=== PATIENT | male | born 1955 | race Two or more races ===

== ENCOUNTER 2020-10-12 09:19 | Inpatient (IN) | payer MEDICARE, MEDICAID ==
[2020-10-12] VITALS (14 sets, daily range): BP systolic 141–163; BP diastolic 88–102
[~2020-10-12] VITALS: Ht 182.9 cm; Wt 90.7 kg
[~2020-10-12 09:19] MED LIST: ceFAZolin sod 1 GM in NS 55 ML IVPB ONE
[2020-10-12] MEDS ORDERED: AMLODIPINE BESYL5 MG ORAL (11:27)
[2020-10-12] MEDS ORDERED: BENAZEPRIL HCL40 MG ORAL (11:27)
[2020-10-12] MEDS ORDERED: FLOMAX0.4 MG ORAL (11:27)
[2020-10-12] MEDS ORDERED: FINASTERIDE5 MG ORAL (11:27)
--- NOTE | 2020-10-12 12:12 | Anethesia Preoperative Eval ---
Anesthesia Pre-op PMH/ROS General Date of Evaluation: Oct 12, 2020 Time of Evaluation: 12:43 Anesthesiologist: Gwen ASA Score: ASA 3 Mallampati Score Class I : Soft palate, uvula, fauces, pillars visible Class II: Soft palate, uvula, fauces visible Class III: Soft palate, base of uvula visible Class IV: Only hard plate visible Mallampati Classification: Class II Surgeon: Hamlet Diagnosis: BPH Surgical Procedure: TURP Anesthesia History: none Family History: no anesthesia problems Allergies: Coded Allergies: No Known Allergies (Unverified , 12/22/14) Medications: see eMAR Patient NPO?: Yes Past Medical History Cardiovascular: Reports: HTN Gastrointestinal/Genitourinary: Reports: other - BPH Musculoskeletal/Integumentary: Reports: OA PSxH Narrative: L IHR, R Knee SX Anesthesia Pre-op Phys. Exam Physician Exam Last Vital Signs Date Time Temp Pulse Resp B/P (MAP) Pulse Ox O2 Delivery O2 Flow Rate FiO2 10/12/20 11:34 97.1 89 20 146/102 97 Room Air Constitutional: NAD Neurologic: CN 2-12 intact Cardiovascular: RRR Respiratory: CTA Gastrointestinal: S/NT/ND Airway Exam Mallampati Score: Class II MO: full ROM: limited Teeth: missing, intact Anesthesia Pre-op A/P Risk Assessment & Plan Assessment: ASA 3 Plan: GA, SED,. GlideScope Status Change Before Surgery: No Pre-Antibiotics Dru Gram Ancef IV Given Within 1 Hr of Incision: Yes Time Given: 13:06 Collin Hidalgo MD Oct 12, 2020 12:12
[2020-10-12] MEDS ORDERED: Metoclopramide 10mg/2ml Inj IVP PRN (12:15)
[2020-10-12] MEDS ORDERED: Ketorolac 30mg Inj IV PRN ×2 (12:15)
[2020-10-12] MEDS ORDERED: LR 1000ml 1,000 ML IVLG SCH (12:15)
[2020-10-12] MEDS ORDERED: Midazolam 2mg/2ml Inj IVP PRN (12:15)
[2020-10-12] MEDS ORDERED: LORazepam Inj 2mg/ml 1ml IV PRN (12:15)
[2020-10-12] MEDS ORDERED: HYDROcodone/Acetamin 7.5/325 tab ORAL PRN (12:15)
[2020-10-12] MEDS ORDERED: Acetaminophen (Non formulary) 100 ML IV ONE (12:15)
[2020-10-12] MEDS ORDERED: fentaNYL 100 mcg/2 mL IV PRN (12:15)
[2020-10-12] MEDS ORDERED: Atropine Sulfate 0.4mg/ml inj IVP PRN (12:15)
[2020-10-12] MEDS ORDERED: Meperidine 25mg/1ml Inj (FOR RIGORS ONLY) IV PRN (12:15)
[2020-10-12] MEDS ORDERED: Hydromorphone 0.5mg/0.5ml inj IVP PRN (12:15)
[2020-10-12] MEDS ORDERED: HYDROcodone/Acetamin 5/325 tab ORAL PRN (12:15)
[2020-10-12] MEDS ORDERED: Labetalol 5mg/ml 20ml vial IV PRN (12:15)
[2020-10-12] MEDS ORDERED: DiphenhydrAMINE 50mg/ml Inj IVP PRN (12:15)
[2020-10-12] MEDS ORDERED: oxyCODONE HCL/Acetaminophen 5/325mg ORAL PRN (12:15)
--- NOTE | 2020-10-12 12:18 | Immediate Post-Op Evaluation ---
Immediate Post-Op Evalulation Immediate Post-Op Evalulation Procedure: TURP Date of Evaluation: Oct 12, 2020 Time of Evaluation: 14:18 IV Fluids: 1000 LR Blood Products: 0 Estimated Blood Loss: 25 Urinary Output: 0 Blood Pressure Systolic: 155 Blood Pressure Diastolic: 98 Pulse Rate: 93 Respiratory Rate: 16 O2 Sat by Pulse Oximetry: 100 Temperature (Fahrenheit): 98.1 Pain Score (1-10): 2 Nausea: No Vomiting: No Complications 0 Patient Status: awake, reacts, patent, extubated, none Hydration Status: adequate Dru Gram Ancef IV Given Within 1 Hr of Incision: Yes Time Given: 13:06 Collin Hidalgo MD Oct 12, 2020 12:18
--- NOTE | 2020-10-12 12:18 | 48 Hour Post Anesthesia Eval ---
Post Anesthesia Evaluation Procedure: TURP Date of Evaluation: Oct 12, 2020 Time of Evaluation: 16:23 Blood Pressure Systolic: 157 0: 94 Pulse Rate: 78 Respiratory Rate: 18 Temperature (Fahrenheit): 98.2 O2 Sat by Pulse Oximetry: 100 Airway: patent Nausea: No Vomiting: No Pain Intensity: 2 Hydration Status: adequate Cardiopulmonary Status: Stable Mental Status/LOC: patient returned to baseline Follow-up Care/Observations: 0 Post-Anesthesia Complications: 0 Follow-up care needed: N/A Collin Hidalgo MD Oct 12, 2020 12:18
--- NOTE | 2020-10-12 12:18 | Pre-Procedure Note/Attestation ---
Pre-Procedure Note/Attestation Complete Prior to Procedure Planned Procedure: not applicable Procedure Narrative: cystolopaxy TURP Indications for Procedure Pre-Operative Diagnosis: bladder stone bph Attestation I attest that I discussed the nature of the procedure; its benefits; risks and complications; and alternatives (and the risks and benefits of such alternatives), prior to the procedure, with the patient (or the patient's legal manufacturer's representative). I attest that, if there was a reasonable possibility of needing a blood transfusion, the patient (or the patient's legal manufacturer's representative) was given the [facility] standardized written summary, pursuant to the [place] Blood Safety Act ([place] Health and Safety Code # 1645, as amended). I attest that I re-evaluated the patient just prior to the surgery and that there has been no change in the patient's H&P, except as documented below: Jason Mcnulty MD Oct 12, 2020 12:18
[2020-10-12] MEDS ORDERED: Rocuronium Bromide 50mg/5ml Inj IV ONE (12:34)
[2020-10-12] MEDS ORDERED: Lidocaine 1% MPF 10mg/ml 5ml ONE (12:45)
[2020-10-12] MEDS ORDERED: Midazolam 2mg/2ml Inj ONE (12:58)
[2020-10-12] MEDS ORDERED: fentaNYL 100 mcg/2 mL IV ONE (13:08)
--- NOTE | 2020-10-12 13:50 | Brief Operative Note ---
Immediate Post Operative Note Operative Note Pre-op Diagnosis: bladder stone bph Procedure: cystolopaxy TURP Post-op Diagnosis: same Post-op Diagnosis: same as pre-op Surgeon: Ziyad Mcnulty Anesthesia: general Specimen: yes Complications: none Condition: stable Fluids: 500 Estimated Blood Loss: minimal Implant(s) used?: No Jason Mcnulty MD Oct 12, 2020 13:50
[2020-10-12 14:58] LABS: BASOPHILS % (AUTO) 0.5 % (0.0-2.0); EOSINOPHILS % (AUTO) 0.2 % (0.0-3.0); HEMATOCRIT 43.2 % (42.0-52.0); HEMOGLOBIN 14.5 G/DL (14.2-18.0); MEAN CORPUSCULAR VOLUME 98 FL (80-99); MONOCYTES % (AUTO) 3.8 % (1.0-10.0); NEUTROPHILS % (AUTO) 82.5 % (45.0-75.0); PLATELET COUNT 250 K/UL (150-450); RED BLOOD COUNT 4.41 M/UL (4.70-6.10)
[2020-10-12 15:09] LABS: ANION GAP 10 mmol/L (5-15); BLOOD UREA NITROGEN 10 mg/dL (7-18); CALCIUM 9.1 MG/DL (8.5-10.1); CARBON DIOXIDE 26 MMOL/L (21-32); CHLORIDE 105 MMOL/L (98-107); CREATININE 0.9 MG/DL (0.55-1.30); POTASSIUM 3.8 MMOL/L (3.5-5.1); SODIUM 141 MMOL/L (136-145)
--- NOTE | 2020-10-12 15:20 | NUR ---
NURSE NOTES: I received patient from PACU at around 1515; received report form ADAN Chaparro; patient awake, alert x4; on Nasal Cannula 2 liters, no sign of distress and shortness of breath; no sing of chest pain; S/O TURP cystolitoph; three way irrigation in place, Green in place; I received patient with 3000cc irrigation fluid running via gravity, outcome pinkish color in the Green; side rails up x2, breaks engaged, bed at lowest position; belongings counted and signed by transferring and receiving nurses; vitals taken and patient stable at this time; will keep monitoring.
[2020-10-12] MEDS ORDERED: D5 1/2NS w/KCl 20mEq 1,000 ML IV SCH (15:30)
[2020-10-12] MEDS: D5 1/2NS w/KCl 20mEq 1,000 ML IV SCH (16:55)
--- NOTE | 2020-10-12 17:59 | NUR ---
NURSE NOTES: Pateint's BP 171/112 Pule 100; patient doesn't have BP med on board; I communicated the matter to MD Mcnulty; waiting for order.
--- NOTE | 2020-10-12 18:00 | NUR ---
NURSE NOTES: Patient is hypertensive, received order from MD Mcnulty; order carried out as given;
--- NOTE | 2020-10-12 20:08 | NUR ---
NURSE HAND-OFF: Important Events on Shift:CBI, BP controll, IV fluid administering Patient Status: Diet: Pending Orders: Pending Results/Labs: Pending MD notification: Latest Vital Signs: Temperature 98.2 , Pulse 100 , B/P 171 /113 , Respiratory Rate 18 , O2 SAT 96 , Nasal Cannula, O2 Flow Rate 3 . Vital Sign Comment: Latest Molina Fall Score: 20 Fall Risk: Low Risk Safety Measures: Call light , Bed Alarm , Side Rails , Bed position . Fall Precautions: Report given to .
[2020-10-13] VITALS: BP 138/87
[2020-10-13] MEDS: D5 1/2NS w/KCl 20mEq 1,000 ML IV SCH (03:09)
[2020-10-13 04:00] VITALS: BP 156/92
--- NOTE | 2020-10-13 06:00 | NUR ---
NURSE NOTES: Total continue bladder irrigate amount 3000ml. Output amount 2700ml. True output: 300 ml Urine color: yellow. No s/s of bleeding noted.
[2020-10-13 06:35] LABS: BASOPHILS % (AUTO) 0.3 % (0.0-2.0); HEMOGLOBIN 15.9 G/DL (14.2-18.0); LYMPHOCYTES % (AUTO) 12.4 % (20.0-45.0); MEAN CORPUSCULAR VOLUME 99 FL (80-99); MONOCYTES % (AUTO) 8.8 % (1.0-10.0); NEUTROPHILS % (AUTO) 78.4 % (45.0-75.0); PLATELET COUNT 270 K/UL (150-450); RED BLOOD COUNT 4.77 M/UL (4.70-6.10); WHITE BLOOD COUNT 12.3 K/UL (4.8-10.8)
[2020-10-13 06:58] LABS: ANION GAP 9 mmol/L (5-15); BLOOD UREA NITROGEN 12 mg/dL (7-18); CALCIUM 9.5 MG/DL (8.5-10.1); CARBON DIOXIDE 25 MMOL/L (21-32); CHLORIDE 105 MMOL/L (98-107); POTASSIUM 4.1 MMOL/L (3.5-5.1); SODIUM 139 MMOL/L (136-145)
--- NOTE | 2020-10-13 07:00 | NUR ---
NURSE HAND-OFF: Important Events on Shift: CBI on, Net output 300ml, yellow urine color, no s/s of bleeding noted. Patient Status: Stable Diet: Regular Pending Orders: Pending Results/Labs: Pending MD notification: Latest Vital Signs: Temperature 98.0 , Pulse 76 , B/P 156 /92 , Respiratory Rate 16 , O2 SAT 98 , Nasal Cannula, O2 Flow Rate 2.0 . Vital Sign Comment: Latest Molina Fall Score: 20 Fall Risk: Low Risk Safety Measures: Call light Within Reach, Bed Alarm Zone 1, Side Rails Side Rails x2, Bed position Low and Locked. Fall Precautions: Door Sign Patient Fall Education Report given to Tracey ARELLANO.
--- NOTE | 2020-10-13 07:32 | NUR ---
NURSE NOTES: Patient awake, alert x4; on Nasal Cannula 2 Liters, no distress and shortness of breath; no chest pain; IV Right-Arm fluid running; CBI running, I received at 2000cc fluid left is the irrigation bag, light pink out come in the Green bag; side rails up x2, breaks engaged, bed at lowest position; call light within reach; will keep monitoring.
[2020-10-13 08:00] VITALS: BP 155/103
--- NOTE | 2020-10-13 10:08 | NUR ---
NURSE NOTES: Patient walking in the [address] way with PT;
--- NOTE | 2020-10-13 10:09 | NUR ---
NURSE NOTES: Seen and evaluated by and felicia to discharge today and switch Green drainage bag to leg bag. Order noted and carried out.
--- NOTE | 2020-10-13 10:10 | NUR ---
PT EVALUATION NOTE Patient seen for initial evaluation and treatment initiated. Patient presents with generalized weakness s/p TURP. Patient requires supervision for bed mobility and supervision/SBA for transfers. Patient able to ambulate 150 ft with supervision/SBA, no AD, slowed pace. Patient will benefit from skilled inpatient PT intervention to improve level of functional mobility, safety and activity tolerance. Anticipate discharge home once medically cleared by MD. Addendum: 10/13/20 at 1249 by MIGUEL GILMAN PT Amended: Links added.
--- NOTE | 2020-10-13 10:30 | 48 Hour Post Anesthesia Eval ---
Post Anesthesia Evaluation Procedure: TURP Date of Evaluation: Oct 13, 2020 Time of Evaluation: 10:29 Blood Pressure Systolic: 142 0: 78 Pulse Rate: 68 Respiratory Rate: 18 Temperature (Fahrenheit): 97.6 O2 Sat by Pulse Oximetry: 98 Airway: patent Nausea: No Vomiting: No Pain Intensity: 3 Hydration Status: adequate Cardiopulmonary Status: stable Mental Status/LOC: patient returned to baseline Follow-up Care/Observations: n/a Post-Anesthesia Complications: none Follow-up care needed: ready to discharge Serafin Lofton MD Oct 13, 2020 10:30
--- NOTE | 2020-10-13 10:44 | Consultation ---
History of Present Illness General Date patient seen: Oct 13, 2020 Present Illness HPI This is a very pleasant 65-year-old male with history of BPH and bladder stone status post stone removal and TURP. Patient complaining of pelvic discomfort. Leakage around Green. Surgery called to evaluate assist with care. Patient seen, patient by, chart reviewed. No nausea fever chills tolerating diet plans to be ambulatory today. Pain is a cramping 6 out of 10 pelvic lower abdominal pain. Labs noted. No current imaging. Allergies: Coded Allergies: No Known Allergies (Unverified , 12/22/14) COVID-19 Screening Contact w/high risk pt: No Experienced COVID-19 symptoms?: No Medication History Scheduled Amlodipine Besylate* (Amlodipine Besylate*), 5 MG ORAL DAILY, (Reported) Benazepril Hcl* (Benazepril Hcl*), 40 MG ORAL DAILY, (Reported) Finasteride (Finasteride), 5 MG ORAL DAILY, (Reported) Tamsulosin HCl (Flomax), 0.4 MG ORAL DAILY, (Reported) Patient History History Provided By: Patient Healthcare decision maker N Resuscitation status Advanced Directive on File Past Medical/Surgical History Past Medical/Surgical History: (1) Pelvic pain (2) BPH (benign prostatic hyperplasia) Review of Systems Review of Symptoms General ROS: no weight loss or fever Psychological ROS: no depression or mood changes, no memory loss Ophthalmic ROS: no visual changes or eye irritation ENT ROS: no nasal congestion, hearing loss, dizziness Allergy and Immunology ROS: no allergic symptoms or urticaria Hematological and Lymphatic ROS: no swollen glands, unusual bleeding or bruising Endocrine ROS: no polyuria, polydipsia, weight changes, temperature intolerance Respiratory ROS: no cough, shortness of breath, or wheezing Cardiovascular ROS: no chest pain or dyspnea on exertion Gastrointestinal ROS: denies abdominal pain, bright red blood in stool. Musculoskeletal ROS: no myalgias or arthralgias Neurological ROS: no TIA or stroke symptoms Dermatological ROS: no new or changing skin lesions, rashes or pruritis Physical Exam Physical Exam General appearance: alert, cooperative, no distress, appears stated age Head: Normocephalic, without obvious abnormality, atraumatic Eyes: conjunctivae/corneas clear. PERRL, EOM's intact. Fundi benign Throat: Lips, mucosa, and tongue normal. Teeth and gums normal Neck: supple, symmetrical, trachea midline, no adenopathy, thyroid: not enla rged, symmetric, no tenderness/mass/nodules, no carotid bruit and no JVD Lungs: clear to auscultation bilaterally Heart: regular rate and rhythm, S1, S2 normal, no murmur, click, rub or gallop Abdomen: soft, non-tender. Bowel sounds normal. No masses, no organomegaly Extremities: extremities normal, atraumatic, no cyanosis or edema Pulses: 2+ and symmetric Skin: Skin color, texture, turgor normal. No rashes or lesions Neurologic: Grossly normal Last 24 Hour Vital Signs Date Time Temp Pulse Resp B/P (MAP) Pulse Ox O2 Delivery O2 Flow Rate FiO2 10/13/20 10:30 68 18 98 10/13/20 09:00 Nasal Cannula 2.0 10/13/20 08:14 74 155/103 10/13/20 08:13 155/103 10/13/20 08:00 98.3 73 18 155/103 (120) 99 10/13/20 04:00 98.0 76 16 156/92 (113) 98 10/13/20 00:00 98.6 88 18 138/87 (104) 99 10/12/20 21:00 Nasal Cannula 2.0 10/12/20 20:00 98.3 98 16 158/96 (116) 97 10/12/20 18:22 100 171/113 10/12/20 18:21 171/113 10/12/20 18:15 98.2 98 18 141/102 (115) 96 10/12/20 17:15 97.5 94 18 163/100 (121) 96 10/12/20 16:15 97.1 74 18 152/97 (115) 96 10/12/20 15:53 97.4 67 18 151/93 (112) 96 10/12/20 15:45 97.6 17 154/99 (117) 97 10/12/20 15:15 98.0 78 15 158/93 100 Nasal Cannula 3 10/12/20 15:00 74 18 155/95 100 Nasal Cannula 3 10/12/20 14:45 68 14 145/88 100 Nasal Cannula 3 10/12/20 14:30 68 15 148/96 100 Simple Mask 6 10/12/20 14:20 71 16 151/88 100 Simple Mask 6 10/12/20 14:10 83 14 155/95 100 Simple Mask 6 10/12/20 14:03 78 18 100 10/12/20 14:02 93 16 100 10/12/20 14:01 98.1 93 16 155/92 100 Simple Mask 6 10/12/20 11:34 97.1 89 20 146/102 97 Room Air 10/12/20 11:29 Room Air Intake and Output 10/12/20 10/13/20 19:00 07:00 Intake Total 1300 ml 4100 ml Output Total 2830 ml 2700 ml Balance -1530 ml 1400 ml Intake IV Total 300 ml 1100 ml Other 1000 ml 3000 ml Output Urine Total 2800 ml 2700 ml Estimated Blood Loss 30 ml # Voids 1 Laboratory Tests Test 10/12/20 14:50 10/13/20 05:30 White Blood Count 8.0 K/UL (4.8-10.8) 12.3 K/UL (4.8-10.8) #H Red Blood Count 4.41 M/UL (4.70-6.10) L 4.77 M/UL (4.70-6.10) Hemoglobin 14.5 G/DL (14.2-18.0) 15.9 G/DL (14.2-18.0) Hematocrit 43.2 % (42.0-52.0) 47.0 % (42.0-52.0) Mean Corpuscular Volume 98 FL (80-99) 99 FL (80-99) Mean Corpuscular Hemoglobin 32.9 PG (27.0-31.0) H 33.4 PG (27.0-31.0) H Mean Corpuscular Hemoglobin Concent 33.6 G/DL (32.0-36.0) 33.9 G/DL (32.0-36.0) Red Cell Distribution Width 12.0 % (11.6-14.8) 12.0 % (11.6-14.8) Platelet Count 250 K/UL (150-450) 270 K/UL (150-450) Mean Platelet Volume 8.0 FL (6.5-10.1) 8.1 FL (6.5-10.1) Neutrophils (%) (Auto) 82.5 % (45.0-75.0) H 78.4 % (45.0-75.0) H Lymphocytes (%) (Auto) 13.0 % (20.0-45.0) L 12.4 % (20.0-45.0) L Monocytes (%) (Auto) 3.8 % (1.0-10.0) 8.8 % (1.0-10.0) Eosinophils (%) (Auto) 0.2 % (0.0-3.0) 0.0 % (0.0-3.0) Basophils (%) (Auto) 0.5 % (0.0-2.0) 0.3 % (0.0-2.0) Sodium Level 141 MMOL/L (136-145) 139 MMOL/L (136-145) Potassium Level 3.8 MMOL/L (3.5-5.1) 4.1 MMOL/L (3.5-5.1) Chloride Level 105 MMOL/L (98-107) 105 MMOL/L (98-107) Carbon Dioxide Level 26 MMOL/L (21-32) 25 MMOL/L (21-32) Anion Gap 10 mmol/L (5-15) 9 mmol/L (5-15) Blood Urea Nitrogen 10 mg/dL (7-18) 12 mg/dL (7-18) Creatinine 0.9 MG/DL (0.55-1.30) 1.0 MG/DL (0.55-1.30) Estimat Glomerular Filtration Rate > 60 mL/min (>60) > 60 mL/min (>60) Glucose Level 105 MG/DL (74-106) 122 MG/DL (74-106) H Calcium Level 9.1 MG/DL (8.5-10.1) 9.5 MG/DL (8.5-10.1) Height (Feet): 6 Height (Inches): 0.00 Weight (Pounds): 200 Medications Current Medications Medications (Trade) Dose Ordered Sig/Giovani Route PRN Reason Start Time Stop Time Status Last Admin Dose Admin Amlodipine Besylate (Norvasc) 5 mg DAILY ORAL 10/12/20 18:15 11/11/20 18:14 10/13/20 08:14 Benazepril HCl (Lotensin) 40 mg DAILY ORAL 10/12/20 18:15 11/11/20 18:14 10/13/20 08:13 Dextrose/ Electrolytes 1,000 ml @ 100 mls/hr Q10H IV 10/12/20 17:00 11/11/20 16:59 10/13/20 03:09 Assessment/Plan Problem List: (1) Pelvic pain Assessment & Plan: 65-year-old male status post TURP and bladder stone. Patient doing well postoperatively having some mild pelvic discomfort. No nausea vomiting fever chills. Labs okay. Tolerating diet. Is not been ambulatory yet. Has CBI now urine clear. CBI off. Abdominal exam pelvic exam fairly benign. Patient leaking around Green feels little pressure and discomfort. Green checked not clogged irrigated functional. No acute surgical intervention planned. Okay for diet ambulate with physical therapy keep Green in potential discharge soon otherwise well and stable. Will follow with recommendations thank you let me participate in patient's care pain likely related to patient's recent intervention and radiated discomfort. No complication or issues noted ICD Codes: R10.2 - Pelvic and perineal pain SNOMED: 25303656 (2) BPH (benign prostatic hyperplasia) ICD Codes: N40.0 - Benign prostatic hyperplasia without lower urinary tract s ymptoms SNOMED: 694408458 Mukul Rhodes Oct 13, 2020 10:44
[2020-10-13 12:00] VITALS: BP 143/94
--- NOTE | 2020-10-13 13:47 | NUR ---
NURSE NOTES: Patient discharge to Home; per MD Mcnutly, Green kept upon discharge; IV and name tag removed; original medication prescription and printed material provided; patient teaching given at the bed side about Green care, how to change and empty Green; belonging list signed by patient and discharging nurse; patient greens picker by his ; patient stable upon discharge; extra Green bags provided to patient;
--- NOTE | 2020-10-13 16:09 | NUR ---
CASE MANAGEMENT:REVIEW 65 YR OLD MALE HERE FOR ELECTIVE SURGERY SI: BLADDER STONE. BPH 97.1 89 20 146/102 97% ON RA IS: TO SURGERY FOR: CYSTOLOPAXY TURP IVF@100/HR : TO MED/SURG UNIT 10/13/20 DISCHARGE HOME
--- NOTE | 2020-10-13 19:44 | Operative Note - Dictated ---
DATE OF OPERATION: 10/12/2020 PREOPERATIVE DIAGNOSES: BPH, bladder stone. POSTOPERATIVE DIAGNOSES: BPH, bladder stone. OPERATION: Cystolitholapaxy, TURP. OPERATED BY: Jason Mcnulty MD. ANESTHESIA: General. FINDINGS: Enlarged prostate, bladder stone. INDICATION FOR SURGERY: Patient had dysuria and recurrent urinary tract infections, found to have bladder stone and BPH. Treatment options were explained to him in great length including all potential complications. He signed a consent. DESCRIPTION OF PROCEDURE: He was brought to the operating room, placed in lithotomy position, prepped and draped in standard fashion. Under general anesthesia, the resectoscope was introduced and stone was grasped and crushed into small fragments and removed with Teresa evacuator for pathologic examination. After that, the standard TURP was performed. All the tubes were evacuated. Hemostasis. 24-Stateless Green catheter. CBI started. Patient tolerated the procedure well. No evidence of complications. Jason Mcnulty M.D. DR: Jamar JOB#: [id number] CC:
--- NOTE | 2020-10-18 12:20 | Discharge Summary ---
Discharge Summary Hospital Course Date of Admission Oct 12, 2020 at 11:05 Date of Discharge Oct 13, 2020 at 12:25 Admitting Diagnosis Enlarged prostate, bladder stone. Reason for Hospitalization: Elective surgery HPI Trevon Kim is a 65 year old male who was admitted on Oct 12, 2020 at 11:05 for enlarged prostate and bladder stone. Patient was admitted for elective surgery. Procedures s/p 10/12/[address] CROCKETT Cystolitholapaxy, TURP. Hospital Course status post surgery course of recovery uneventful initially IV fluids and continuous bladder irrigation s/p perioperative antibiotic pain management was addressed , and pain was controlled remained hemodynamically stable ambulated fall precautions maintained; safe for ambulation use of incentive spirometry was encouraged while in the bed tolerated diet , IV fluids discontinued GI prophylaxis provided antiemetics were on board as needed blood pressure was managed with antihypertensive regimen, and stabilized bowel regimen instituted bladder irrigation was closely monitored fpr amount , color and clots bladder irrigation tapered down and stopped after urine cleared patient was stable for discharge Green was kept upon discharge patient teaching was done ret Green catheter :how to change and empty, an extra bag provided patient to follow-up with a urologist as scheduled. FINAL DIAGNOSES Enlarged prostate, bladder stone. s/p 10/12 Cystolitholapaxy, TURP. Discharge Condition Upon Discharge: stable Discharge Vital Signs Last Vital Signs Date Time Temp Pulse Resp B/P (MAP) Pulse Ox O2 Delivery O2 Flow Rate FiO2 10/13/20 12:00 98.5 62 18 143/94 (110) 96 10/13/20 09:00 Nasal Cannula 2.0 Discharge Disposition Patient was discharged home Discharge Instructions Discharge Instructions Special Instructions I have been assigned to dictate discharge summary for this account. I was not involved in the patient's management. Vanita Cardona NP Oct 18, 2020 12:20
== END 2020-10-13 12:25 | disposition home or self-care (01) | DRG 714 ==
LOC: SDSOVERFLO 11:05 → 4E 15:15
DX: N40.1 Benign prostatic hyperplasia with lower urinary tract symptoms (principal); N21.0 Calculus in bladder; Z87.891 Personal history of nicotine dependence; Z85.528 Personal history of other malignant neoplasm of kidney; I10 Essential (primary) hypertension
CPT/HCPCS: 36415; 80048; 85025; 86850; 86900; 86901; 87081; 94003; 94150; J2180; J2250; J2405